=== PATIENT | female | born 1955 | race Caucasian/White ===

== ENCOUNTER 2021-03-08 11:51 | Outpatient (CLI) | payer OTHER ==
--- NOTE | 2021-03-08 13:19 | CT Report ---
PROCEDURE: Low Dose Lung Cancer Screen INDICATIONS: TOBACCO SMOKER TECHNIQUE: Noncontrast low-dose 5 mm thick sections acquired from the pulmonary apices to the posterior costophr enic angles. 7 mm thick coronal and sagittal MIP reformats were then acquired. For radiation dose r eduction, the following was used: automated exposure control, adjustment of mA and/or kV according t o patient size. COMPARISON: None. FINDINGS: Image quality: Excellent. Lungs and pleura: 3 mm benign-appearing pleural-based density, right lower lobe, image 224/5. 2 mm, possibly calcified subpleural nodule, right upper lobe, image 144/5. 2 mm subpleural pulmonary nodule , extreme right lung base, image 269/5. 3 mm subpleural left lower lobe pulmonary nodule, image 20 49 /5. 2 x 5 mm area of focal pleural thickening, posterior medial left upper lobe, image 128/5. Mediastinum: Heart size is normal. No pericardial effusion. No mediastinal adenopathy by size crit eria. Thoracic aorta and central pulmonary arteries are normal in size. Esophagus is normal in andreina jose. No hiatal hernia. Bones and chest wall: No suspicious bony lesions. No vertebral body compression fractures. No axil rubi or supraclavicular adenopathy by size criteria. The thyroid is normal in size. Abdomen: Visualized upper abdomen solid organs and bowel loops appear normal in the absence of contr ast. IMPRESSION: 1. LungRads Category 2: Benign appearance or behavior-nodules with a very low likelihood of becoming a clinically active cancer due to size or lack of growth. Multiple small pulmonary nodules. 2. Annual follow-up low-dose noncontrast CT of the chest is recommended for lung cancer screening. Reviewed by: Garland Nassar MD on 03/08/2021 1:18 PM PDT Approved by: Garland Nassar MD on 03/08/2021 1:18 PM PDT Station ID: [id number]
== END 2021-03-08 11:52 | disposition home or self-care (01) ==
LOC: DI 11:51
PROVIDERS: ATTEND Student in an Organized Health Care Education/Training Program
DX: Z12.2 Encounter for screening for malignant neoplasm of respiratory organs (principal); F17.210 Nicotine dependence, cigarettes, uncomplicated; R91.8 Other nonspecific abnormal finding of lung field